=== PATIENT | female | born 1940 | race Caucasian/White ===

== ENCOUNTER 2017-08-30 13:21 | Emergency (ER) | payer MEDICARE ==
[~2017-08-30] VITALS: Ht 152.4 cm; Wt 105.0 kg
[~2017-08-30 13:21] MED LIST: ALPRAZOLAM0.25 MG PO; ATORVASTATIN CA20 MG PO; CLOPIDOGREL75 MG PO; LEVETIRACETAM500 M1 PO; LEXAPRO10 MG PO; LORTAB 5/3255 MG PO; NO MEDS; PRAVASTATIN20 MG PO; REQUIP0.5 MG PO; SEROQUEL25 MG PO; ZOLOFT25 MG PO; ZOLOFT50 MG PO; ZOLPIDEM5 MG PO
[2017-08-30] MEDS ORDERED: PROZAC10 MG PO (13:41)
[2017-08-30] MEDS ORDERED: SEROQUEL25 MG PO (13:41)
[2017-08-30 14:14] LABS: HEMATOCRIT 40.4 % (37.0-47.0); HEMOGLOBIN 13.8 g/dl (12.0-16.0); IMMATURE GRANULOCYTES 0.2 % (0.0-1.0); MEAN CELL VOLUME 100.7 fL CALC (80.0-100.0); MEAN CORPUSCULAR HGB 34.4 pG CALC (26.0-32.0); MEAN CORPUSCULAR HGB CONC 34.2 g/L CALC (32.0-36.0); NEUT# 5.3 thou/uL (2.00-7.15); RED BLOOD COUNT 4.01 mill/uL (4.20-5.60)
[2017-08-30 14:26] LABS: ALBUMIN 3.8 g/dL (3.2-5.0); ALKALINE PHOSPHATASE 145 u/l (38-126); ANION GAP 13 (6-22 (CALC)); BILIRUBIN, TOTAL 0.4 mg/dL (0.0-1.4); BUN 16 mg/dL (8-23); BUN/CREATININE RATIO 19 (12-20 (CALC)); CALCIUM 8.8 mg/dL (8.4-10.2); CARBON DIOXIDE 26 mmol/l (22-30); CHLORIDE 109 mmol/l (95-108); CREATININE 0.8 mg/dL (0.5-1.0); GFR > 60 ML/MIN (>=60 (CALC)); GFR FOR AFR.AMER. > 60 ML/MIN (>=60 (CALC)); GLUCOSE 116 mg/dL (82-115); POTASSIUM 3.7 mmol/l (3.5-5.1); SGOT/AST 29 u/l (9-36); SGPT/ALT 32 u/l (11-66); SODIUM 144 mmol/l (137-146)
[2017-08-30 14:38] LABS: MYOGLOBIN 34 ng/mL (0 - 62)
[2017-08-30] MEDS ORDERED: EC-NAPROSYN500 MG PO (14:45)
[2017-08-30 15:05] VITALS: BP 118/61
== END 2017-08-30 15:05 | disposition home or self-care (01) ==
LOC: ED 13:21
PROVIDERS: Emergency Medicine
DX: M25.512 Pain in left shoulder (principal); E78.5 Hyperlipidemia, unspecified; F32.9 Major depressive disorder, single episode, unspecified; F41.9 Anxiety disorder, unspecified; F03.90 Unspecified dementia, unspecified severity, without behavioral disturbance, psychotic disturbance, mood disturbance, and anxiety; Z86.73 Personal history of transient ischemic attack (TIA), and cerebral infarction without residual deficits; R94.31 Abnormal electrocardiogram [ECG] [EKG]

== ENCOUNTER 2018-01-01 12:13 | Emergency (ER) | payer MEDICARE ==
[~2018-01-01] VITALS: Ht 152.4 cm; Wt 100.0 kg
[~2018-01-01 12:13] MED LIST changes: +EC-NAPROSYN500 MG PO; +PROZAC10 MG PO
[2018-01-01] MEDS ORDERED: ALPRAZOLAM0.5 M2 PO (12:32)
[2018-01-01] MEDS ORDERED: LEVETIRACETAM500 MG PO (12:37)
[2018-01-01] MEDS ORDERED: ZOLPIDEM5 M1 PO (12:37)
[2018-01-01] MEDS ORDERED: ROPINIROLE HC0.25 MG PO (12:38)
[2018-01-01] MEDS ORDERED: FLUOXETINE HCL20 MG PO (12:39)
[2018-01-01] MEDS ORDERED: TORADOL PO (13:56)
[2018-01-01 14:02] VITALS: BP 124/76
== END 2018-01-01 14:09 | disposition home or self-care (01) ==
LOC: ED 12:13
DX: S86.911A Strain of unspecified muscle(s) and tendon(s) at lower leg level, right leg, initial encounter (principal); S76.911A Strain of unspecified muscles, fascia and tendons at thigh level, right thigh, initial encounter; M79.604 Pain in right leg

== ENCOUNTER 2018-01-11 14:00 | Emergency (ER) | payer MEDICARE ==
[~2018-01-11] VITALS: Ht 152.4 cm; Wt 110.0 kg
[~2018-01-11 14:00] MED LIST changes: +ALPRAZOLAM0.5 M2 PO; +FLUOXETINE HCL20 MG PO; +LEVETIRACETAM500 MG PO; +ROPINIROLE HC0.25 MG PO; +TORADOL PO; +ZOLPIDEM5 M1 PO
[2018-01-11] MEDS ORDERED: TORADOL PO (15:35)
[2018-01-11] MEDS ORDERED: MEDDOSEPAK PO (15:35)
[2018-01-11 15:45] VITALS: BP 132/77
== END 2018-01-11 15:45 | disposition home or self-care (01) ==
LOC: ED 14:00
DX: S86.911A Strain of unspecified muscle(s) and tendon(s) at lower leg level, right leg, initial encounter (principal); F03.90 Unspecified dementia, unspecified severity, without behavioral disturbance, psychotic disturbance, mood disturbance, and anxiety; W19.XXXA Unspecified fall, initial encounter

== ENCOUNTER 2019-10-03 | Emergency (ER) | payer MEDICARE ==
[~2019-10-03] MED LIST changes: +MEDDOSEPAK PO
[2019-10-03 11:45] LABS: HEMATOCRIT 43.8 % (37.0-47.0); HEMOGLOBIN 14.3 g/dl (12.0-16.0); IMMATURE GRANULOCYTES 0.3 % (0.0-5.0); MEAN CELL VOLUME 96.1 fL CALC (80.0-100.0); MEAN CORPUSCULAR HGB 31.4 pG CALC (26.0-32.0); MEAN CORPUSCULAR HGB CONC 32.6 g/L CALC (32.0-36.0); NEUT# 6.5 thou/uL (2.00-7.15); RED BLOOD COUNT 4.56 mill/uL (4.20-5.60); RED CELL DISTRI WIDTH 12.7 % (11.5-15.5)
[2019-10-03 11:58] LABS: ALBUMIN 3.9 g/dL (3.2-5.0); ALKALINE PHOSPHATASE 199 u/l (38-126); ANION GAP 14 (6-22 (CALC)); BILIRUBIN, TOTAL 0.4 mg/dL (0.0-1.4); BUN 14 mg/dL (8-23); BUN/CREATININE RATIO 19 (12-20 (CALC)); CARBON DIOXIDE 24 mmol/l (22-30); CHLORIDE 105 mmol/l (95-108); CREATININE 0.8 mg/dL (0.5-1.0); GFR > 60 ML/MIN (>=60 (CALC)); GFR FOR AFR.AMER. > 60 ML/MIN (>=60 (CALC)); POTASSIUM 3.8 mmol/l (3.5-5.1); SGOT/AST 35 u/l (9-36); SODIUM 140 mmol/l (137-146); TOTAL PROTEIN 7.7 g/dL (6.3-8.2)
[2019-10-03 12:57] LABS: URINE BILIRUBIN - DIPSTICK NEGATIVE (NEGATIVE); URINE BLOOD DIPSTICK TRACE-INTACT (NEGATIVE); URINE COLOR YELLOW; URINE GLUCOSE - DIPSTICK NEGATIVE (NEGATIVE); URINE KETONE NEGATIVE (NEGATIVE); URINE LEUK ESTERASE TRACE (NEGATIVE); URINE PROTEIN - DIPSTICK NEGATIVE (NEG-TRACE); URINE SPECIFIC GRAVITY 1.015
[2019-10-03] MEDS ORDERED: CEPHALEXIN500 MG PO (12:57)
[2019-10-03] MEDS ORDERED: CLARITIN10 M1 PO (12:57)
[2019-10-03 13:06] LABS: URINE NITRITE - DIPSTICK POSITIVE (Negative); URINE RBC 0-2 RBC/hpf (0-5)
[2019-10-03 13:07] LABS: URINE BACTERIA MANY hpf; URINE EPITHELIAL CELLS FEW EPI/hpf (0-FEW)
== END 2019-10-03 13:48 | disposition home or self-care (01) ==
PROVIDERS: Emergency Medicine
DX: N39.0 Urinary tract infection, site not specified (principal); J40 Bronchitis, not specified as acute or chronic; F03.90 Unspecified dementia, unspecified severity, without behavioral disturbance, psychotic disturbance, mood disturbance, and anxiety; B96.5 Pseudomonas (aeruginosa) (mallei) (pseudomallei) as the cause of diseases classified elsewhere

== ENCOUNTER 2021-10-08 18:09 | Inpatient (IN) | payer MEDICARE ==
[~2021-10-08] VITALS: Ht 152.4 cm; Wt 113.0 kg
[~2021-10-08 18:09] MED LIST changes: +CEPHALEXIN500 MG PO; +CLARITIN10 M1 PO
--- NOTE | 2021-10-08 18:15 | NUR ---
PATIENT TO ROOM 12 VIA EMS.
[2021-10-08 19:02] LABS: HEMATOCRIT 39.3 % (37.0-47.0); HEMOGLOBIN 13.4 g/dl (12.0-16.0); IMMATURE GRANULOCYTES 0.3 % (0.0-5.0); MEAN CORPUSCULAR HGB 35.7 pG CALC (26.0-32.0); MEAN CORPUSCULAR HGB CONC 34.1 g/dL CAL (32.0-36.0); NEUT# 5.54 thou/uL (2.00-7.15); RED BLOOD COUNT 3.75 mill/uL (4.20-5.60); RED CELL DISTRI WIDTH 14.5 % (11.5-15.5)
[2021-10-08 19:05] LABS: MEAN CELL VOLUME 104.8 fL CALC (80.0-100.0)
[2021-10-08 19:22] LABS: ALKALINE PHOSPHATASE 116 u/l (38-126); BUN 18 mg/dL (8-23); BUN/CREATININE RATIO 22 (12-20 (CALC)); CHLORIDE 102 mmol/l (95-108); CREATININE 0.8 mg/dL (0.5-1.0); GFR > 60 ML/MIN (>=60 (CALC)); GFR FOR AFR.AMER. > 60 ML/MIN (>=60 (CALC)); POTASSIUM 3.1 mmol/l (3.5-5.1); SGOT/AST 45 u/l (9-36); SODIUM 138 mmol/l (137-146); TOTAL PROTEIN 6.5 g/dL (6.3-8.2)
[2021-10-08 19:24] LABS: ALBUMIN 2.9 g/dL (3.2-5.0); ANION GAP 9 (6-22 (CALC)); BILIRUBIN, TOTAL 1.6 mg/dL (0.0-1.4); CARBON DIOXIDE 30 mmol/l (22-30)
--- NOTE | 2021-10-08 19:54 | NUR ---
RESTING COMFORTABLY AWAITING DISPO.
[2021-10-08] MEDS ORDERED: QUETIAPINE FUMA50 MG PO (20:15)
--- NOTE | 2021-10-09 | NUR ---
RESTING QUIETLY. VSS. NAD.
--- NOTE | 2021-10-09 01:30 | NUR ---
NO SIGNIFICANT CHANGE NOTED
[2021-10-09 02:43] VITALS: BP 111/56
--- NOTE | 2021-10-09 02:43 | NUR ---
PT RECEIVED FROM ED TO ROOM 263. ARRIVES VIA STRETCHER ACCOMPANIED BY PADMINI WATSON. PT TRANSFERED TO BED. PT NON-VERBAL PER ED NURSE . ORIENTED TO UNIT, ROOM, CALL LEDESMA, LIGHTS, TV. ICE WATER PROVIDED. CALL LEDESMA WITHIN REACH. AGREES TO CALL PRN.
--- NOTE | 2021-10-09 02:45 | NUR ---
Admission Note Report Given to: WALTER TANG Transported by: Wheelchair X Stretcher Transported with: X Nurse Transporter X Patent IV X O2 X Wash Driller Helper Location: ICU X MS2
--- NOTE | 2021-10-09 03:48 | NUR ---
ASSESMENT COMPLETE. PT LAYING IN BED WITH EYES CLOSED, APPEARS TO BE SLEEPING, APPEARS COMFORTABLE AND IN NO DISTRESS. RESPIRATIONS REGULAR AND UNLABORED. ITEMS REMAIN WITHIN REACH, CALL LEDESMA REMAINS WITHIN REACH. BED REMAINS LOCKED AND IN LOW POSITION WITH BEDRAILS UP X2. WILL CONTINUE TO MONITOR.
[2021-10-09 04:00] VITALS: BP 101/52
[2021-10-09 07:00] VITALS: BP 110/52
--- NOTE | 2021-10-09 07:00 | NUR ---
PATIENT LAYING IN BED AT THIS TIME. GEAR HOBBER DONE SEE INTERVENTIONS. LUNG MUNOZ ARE CLEAR THOUGHTOUT. SIDERAILS ARE UP X 2 PATIENT IS NON-VERBAL NO EVIDENCE OF EDEMA NOTED. CALL LIGHT IS WITHIN REACH TELE MONITOR ON AND BEING MONITORED BY ED.
[2021-10-09] MEDS ORDERED: ZOLPIDEM5 M1 PO (07:14)
[2021-10-09] MEDS ORDERED: ROPINIROLE HY0.25 MG PO (07:14)
[2021-10-09] MEDS ORDERED: CIPROFLOXACN500 MG PO (07:14)
[2021-10-09 11:11] VITALS: BP 126/61
[2021-10-09 11:50] LABS: HEMATOCRIT 35.8 % (37.0-47.0); HEMOGLOBIN 12.7 g/dl (12.0-16.0); IMMATURE GRANULOCYTES 0.5 % (0.0-5.0); MEAN CELL VOLUME 101.1 fL CALC (80.0-100.0); MEAN CORPUSCULAR HGB 35.9 pG CALC (26.0-32.0); MEAN CORPUSCULAR HGB CONC 35.5 g/dL CAL (32.0-36.0); NEUT# 3.83 thou/uL (2.00-7.15); RED BLOOD COUNT 3.54 mill/uL (4.20-5.60); RED CELL DISTRI WIDTH 14.2 % (11.5-15.5)
--- NOTE | 2021-10-09 11:56 | NUR ---
PATIENT RESTING IN BED AT THIS TIME. PATIENT GIVEN IN APPLESAUCE 20 MEQ'S OF K-DUR AT THIS TIME. PATIENT DENIES ANY PAIN. SIDERAILS ARE UP X 2 PATIENT ON CAMERA CALL LIGHT WITHIN REACH.
[2021-10-09 12:06] LABS: ALKALINE PHOSPHATASE 109 u/l (38-126); ANION GAP 11 (6-22 (CALC)); BILIRUBIN, TOTAL 1.2 mg/dL (0.0-1.4); BUN 24 mg/dL (8-23); BUN/CREATININE RATIO 31 (12-20 (CALC)); CARBON DIOXIDE 28 mmol/l (22-30); CHLORIDE 103 mmol/l (95-108); CREATININE 0.8 mg/dL (0.5-1.0); GFR > 60 ML/MIN (>=60 (CALC)); GFR FOR AFR.AMER. > 60 ML/MIN (>=60 (CALC)); POTASSIUM 2.9 mmol/l (3.5-5.1); SGOT/AST 40 u/l (9-36); SODIUM 139 mmol/l (137-146); TOTAL PROTEIN 6.7 g/dL (6.3-8.2)
[2021-10-09 12:38] LABS: C-REACTIVE PROTEIN 18.3 mg/dL (0-0.9)
--- NOTE | 2021-10-09 15:10 | NUR ---
PATIENT RESTING IN BED AT THIS TIME. PATIENT DENIES ANY PAIN SIDERAILS ARE UP CALL LIGHT WIHTIN REACH. TELE MONITOR ON PATIENT WILL CONTINUE TO MONITOR.
[2021-10-09 15:48] VITALS: BP 119/57
[2021-10-09 19:00] VITALS: BP 113/56
--- NOTE | 2021-10-09 20:00 | NUR ---
PHYSICAL ASSESMENT COMPLETE. PT CURRENTLY DENIES PAIN OR DISCOMFORT. SCHEDULED MEDICATIONS AND PRN MEDICATION ADMINISTERED, SEE E-MAR. PT DENIES ANY NEEDS AT THIS TIME. PLAN OF CARE REVIEWED, PT DENIES QUESTIONS, VERBALIZES UNDERSTANDING. ITEMS WITHIN REACH, BED LOCKED IN LOW POSITION W/ BEDRAILS UP X2. CALL LEDESMA WITHIN REACH, AGREES TO CALL PRN.
[2021-10-10] VITALS: BP 108/51
[2021-10-10 04:00] VITALS: BP 101/51
[2021-10-10 06:32] LABS: HEMOGLOBIN 12.1 g/dl (12.0-16.0); IMMATURE GRANULOCYTES 0.3 % (0.0-5.0); MEAN CELL VOLUME 102.4 fL CALC (80.0-100.0); MEAN CORPUSCULAR HGB 36.4 pG CALC (26.0-32.0); MEAN CORPUSCULAR HGB CONC 35.6 g/dL CAL (32.0-36.0); NEUT# 5.93 thou/uL (2.00-7.15); RED BLOOD COUNT 3.32 mill/uL (4.20-5.60); RED CELL DISTRI WIDTH 14.3 % (11.5-15.5)
[2021-10-10 07:01] LABS: ALBUMIN 2.6 g/dL (3.2-5.0); ALKALINE PHOSPHATASE 100 u/l (38-126); ANION GAP 10 (6-22 (CALC)); BILIRUBIN, TOTAL 0.9 mg/dL (0.0-1.4); BUN 33 mg/dL (8-23); BUN/CREATININE RATIO 35 (12-20 (CALC)); CARBON DIOXIDE 28 mmol/l (22-30); CHLORIDE 104 mmol/l (95-108); CREATININE 0.9 mg/dL (0.5-1.0); GFR 60 ML/MIN (>=60 (CALC)); GFR FOR AFR.AMER. > 60 ML/MIN (>=60 (CALC)); SGOT/AST 34 u/l (9-36); SODIUM 138 mmol/l (137-146); TOTAL PROTEIN 5.7 g/dL (6.3-8.2)
[2021-10-10 07:08] LABS: POTASSIUM 3.6 mmol/l (3.5-5.1)
--- NOTE | 2021-10-10 08:00 | NUR ---
PT AWAKE UPON ENTERING ROOM. VERY HARD OF HEARING. DENIES USE OF HEARING AIDS. PT CAN SAY NAME BUT COULD NOT TELL ME , OR WHERE SHE WAS AT. TRIED SPEAKINNG IN HIGHER TONE BUT COULD NOT HEAR WHAT IM SAYING. TRIED WRITING DOWN QUESTIONS ON PIECE OF PAPER BUT PT STILL DID NOT ANSWER. ASSESSMENT AND VITALS ALLOWED AT THIS TIME. LUNG SOUNDS CLEAR IN UPPER/ LOWER LOBES ANTERIOR. CLEAR/DIMINISHED UPPER LOWER LOBES POSTERIOR. HEART SOUNDS ARE REGULAR. TELE MONITOR IN PLACE, CONTINOUS MONITORING BY ED. BOWEL SOUNDS ARE ACTIVE X4. EDEMA ON LOWER EXTREMETIES TRACE. PT HAS SMALL BRUISE ON THE LEFT FOREARM. PT ON 5L OF 02 VIA NC. PT ALSO HAS REDNESS BETWEEN PERINEAL THIGHS AREA. BARRIER CREAM APPLIED. PT FACE SHOS NO PAIN, ASKED IF ANY PAIN BUT JUST SHRUGGED SHOULDERS. BED ALARM ACTIVATED. FALL/SAFTEY PRECAUTIONS IN PLACE, CALL LIGHT WITHIN REACH. IV LOCATED 2OG ON LH, SALINE LOCKED. FLUSHED WITH NO RESISTANCE.
[2021-10-10 10:45] VITALS: BP 108/51
--- NOTE | 2021-10-10 13:14 | NUR ---
PT SLEEPING AT THIS TIME. NO DISTRESS NOTED. IV PATENT. BED ALARM IN PLACE. FALL/SAFTEY PRECAUTION IN PLACE. CALL LIGHT WITHIN REACH
--- NOTE | 2021-10-10 14:19 | NUR ---
S- "I can't" when attempting to get pt to stand. 0- Pt resting in bed eyes closed, did not respond to verbal but to touch open her eyes. INDER ex performed to BLE in supine 2 x 10 reps each. Rolling side to side with mod assist and pt using bed rails. Supine to sit with mod/max assist, she was able to maintain sitting x 3 min with CGA. 02 sats initially 91% and desat to 85 while sitting once back in supine 90% HR 96-90, BP 110/53 to 98/55. Pts [address] thru treatment and nursing notified of sats. Pt left in bed with call burton in reach and upper rails up. Unable to get pt to stand today. Time spent with pt 25 min. 0- Pt with decreased mobility [facility] P- Will follow per POC. 0- Pt
[2021-10-10 15:30] VITALS: BP 100/48
--- NOTE | 2021-10-10 16:09 | NUR ---
PT IN SEMI SALEEM POSITION WATCHING TV AT THIS TIME. TRIED ASKING IF IN PAIN BUT DOES NOT UNDERSTAND. FACE APPEARANCE DOES NOT LOOK LIKE IT. NO DISTRESS NOTED. BREATHING IS EVEN AND UNLABORED. FALL/SAFTEY PRECAUTIONS IN PLACE. BED ALARM ACTIVATED. FALL/SAFTEY PRECATUIONS IN PLACE. IV PATENT. CALL LIGHT WITHIN REACH
--- NOTE | 2021-10-10 17:47 | NUR ---
NEW IV ESTABLISHED OUTER LAC 22G, FLUSHED ABLE TO GET BLOOD RETURN BY RN LV. PT TOLERATED WELL. CALL LIGHT WITHIN REACH
[2021-10-10 19:00] VITALS: BP 97/56
--- NOTE | 2021-10-10 22:27 | NUR ---
PHYSICAL ASSESMENT COMPLETE. PT CURRENTLY DENIES PAIN OR DISCOMFORT. SCHEDULED MEDICATIONS AND PRN MEDICATION ADMINISTERED, SEE E-MAR. PT CLEANED OF STOOL/ URINE AND PROVIDED WITH CLEAN LINEN. PLAN OF CARE REVIEWED, PT DENIES QUESTIONS, VERBALIZES UNDERSTANDING. ITEMS WITHIN REACH, BED LOCKED IN LOW POSITION W/ BEDRAILS UP X2. CALL LEDESMA WITHIN REACH, AGREES TO CALL PRN.
[2021-10-11] VITALS (10 sets, daily range): BP systolic 87–144; BP diastolic 41–89
[2021-10-11 06:08] LABS: HEMOGLOBIN 12.1 g/dl (12.0-16.0); IMMATURE GRANULOCYTES 0.2 % (0.0-5.0); MEAN CELL VOLUME 105.6 fL CALC (80.0-100.0); MEAN CORPUSCULAR HGB 35.5 pG CALC (26.0-32.0); MEAN CORPUSCULAR HGB CONC 33.6 g/dL CAL (32.0-36.0); NEUT# 5.23 thou/uL (2.00-7.15); RED BLOOD COUNT 3.41 mill/uL (4.20-5.60); RED CELL DISTRI WIDTH 14.3 % (11.5-15.5)
[2021-10-11 06:42] LABS: ALBUMIN 2.5 g/dL (3.2-5.0); ALKALINE PHOSPHATASE 102 u/l (38-126); ANION GAP 9 (6-22 (CALC)); BUN 36 mg/dL (8-23); BUN/CREATININE RATIO 42 (12-20 (CALC)); C-REACTIVE PROTEIN 5.3 mg/dL (0-0.9); CARBON DIOXIDE 28 mmol/l (22-30); CHLORIDE 106 mmol/l (95-108); CREATININE 0.9 mg/dL (0.5-1.0); GFR 60 ML/MIN (>=60 (CALC)); GFR FOR AFR.AMER. > 60 ML/MIN (>=60 (CALC)); POTASSIUM 3.6 mmol/l (3.5-5.1); SGOT/AST 35 u/l (9-36); SODIUM 139 mmol/l (137-146); TOTAL PROTEIN 5.7 g/dL (6.3-8.2)
--- NOTE | 2021-10-11 08:00 | NUR ---
PT AWAKE WATCHING TV AT THIS TIME. PT IS ALERT TO SELF/PERSON. PT IS NON VERBAL WHEN SPOKEN TO. NO DISTRESS NOTED. VITALS AND ASSESSMENT ALLOWED AT THIS TIME. LUNG SOUNDS CLEAR/DIMINISHED UPPER/LOWER LOBES ANTERIOR AND POSTERIOR. CRACKLES ARE HEARD IN RLL AND LLL ANTERIOR AND POSTERIOR. HEART SOUNDS ARE REGULAR, TELE MONITOR IN PLACE. CONTINOUS MONITORING BY ED. PULSES PEDAL AND RADIAL ARE STRONG. SKIN WDI. SEIZURE PRECAUTIONS IN PLACE. FALL/SAFTEY PRECAUTIONS IN PLACE. BED ALARM ACTIVATED. SPO2 AT 89-90 ON 6L OF 02 VIA NC. PT TENDS TO DROP 85-87 IN MORNINGS. BROUGHT UP TO 6L. CALL LIGHT WITHIN REACH
--- NOTE | 2021-10-11 09:03 | NUR ---
Patient has been evaluated and would probably benefit from OT consult if medical agrees
--- NOTE | 2021-10-11 12:00 | NUR ---
PT AWAKE WATCHING TV, NO DISTRESS NOTED. TELE MONITOR IN PLACE. IV SITE PATENT. FALL/SAFTEY/SEIZURE PRECAUTION IN PLACE. CALL LIGHT WITHIN REACH.
--- NOTE | 2021-10-11 17:48 | NUR ---
PT AWAKE SITTING IN RECLINER AT THIS TIME EATING DINNER. NO DISTRESS NOTED. TELE MONITOR IN PLACE. IV PATENT. FALL/SAFTEY PRECAUTIONS IN PLACE. CALL LIGHT WITHIN REACH.
--- NOTE | 2021-10-11 20:18 | NUR ---
ENTERED ROOM PT SLUMPED IN RECLINER, PT UNABLE TO COMMUNICATE, EYES OPEN PT HAS A "GAZE" LOOK FIXED TO L SIDE. PT ATTEMPTING TO GET OUT OF RECLINER PULLING ON WRITERS ARM WITH HER L ARM, PT MOVING L LEG FROM FLOOR TO RECLINER. WHEN ATTEMPTING TO GET PT IN BED, PT STOOD UP BUT SLID TO THE FLOOR. MANUFACTURING ASSOCIATE AND VOLUNTEER RECRUITER REMAINED AT BEDSIDE, PT DID NOT HIT THE FLOOR OR HER HEAD. PILLOW PROVIDED FOR SUPPORT. VOLUNTEER RECRUITER INSTRUCTED TO CALL STROKE ALERT. PT ACCUCHECK WAS 127. VITALS @ 2029 HR 104, 144/89, SPO2 81% ON 10L NC. PT ASSISTED TO BED X5. #20G LAC STARTED. NOTED R SIDE FLACCID. PT TAKEN TO CT. ARRIVED AT CT @2044. HUMAN FACTORS ERGONOMIST STATION AGENT NOTIFIED AND ORDERS OBTAINED. RT AT BEDSIDE ASSESSING RESPIRATORY STATUS. NON REBREATHER PLACED AND PT SATS 87%. NEUROLOGIST VIA TELESTROKE MONITOR FOR FURTHER INSTRUCTION.
--- NOTE | 2021-10-11 21:19 | NUR ---
ORDERS TO TRANSFER TO ICU, PT TAKEN VIA BED, REPORT GIVEN TO KIYA WATSON.
--- NOTE | 2021-10-11 21:20 | NUR ---
REPORT RECEIVED FROM Tony LINTON LPN WHILE DOWN IN CT CONTROL ROOM DURING PT'S CTA. CARE OF PT ASSUMED AT THIS TIME. PT TRANSPORTED TO ICU #8 IN BED. PT REMAINS NON-VERBAL WITH RIGHT SIDED HEMIPLEGIA AND RIGHT SIDED NEGLECT. PT AWAKE AND ALERT WITH L-SIDED MOVEMENT WNL. DOES NOT FOLLOW DIRECTION. LOOKS AROUND ROOM ON LEFT SIDE. ST 120'S ON MONITOR. SP02 93% ON NRB. NIBP 133/54mmHg. RR 25/M.
--- NOTE | 2021-10-11 21:30 | NUR ---
#16 FR. [place] INSERTED, ASEPTIC TECHNIQUE MAINTAINED. ASSISTED BY Tony LINTON LPN AND Ede VELÁZQUEZ RN.
--- NOTE | 2021-10-11 22:22 | NUR ---
Yasmin TIJERINA MADE AWARE OF CTA RESULTS, OCCLUDED L-MCA AND L-ICA. ORDERS ARE FOR SUPPORTIVE CARE. PERMISSIVE HTN UP TO 220mmHg. BIPAP OR VAPOTHERM TOLERATED IF NEEDED TO MAINTAIN SPO2 >88%.
--- NOTE | 2021-10-11 22:30 | NUR ---
TELEPHONE CALL TO LISTED NEXT OF KIN/PERSON TO NOTIFY, MARY WHITEHEAD ,DAUGHTER, MADE AT THIS TIME. NO ANSWER. VOICEMAIL LEFT WITH RETURN PHONE NUMBER FOR ICU.
--- NOTE | 2021-10-11 23:06 | NUR ---
PT RESTLESS. WILL NOT KEEP NRB ON. W/O NRB PTSS SPO2 QUICKLY DESATURATES INTO THE 60S. ORDER FOR ATIVAN RECEIVED. ATIVAN ADMINISTERED, SEE E-MAR.
[2021-10-12] VITALS (8 sets, daily range): BP systolic 100–140; BP diastolic 48–71
--- NOTE | 2021-10-12 02:43 | NUR ---
PT APPEARS TO BE SLEEPING COMFORTABLY. NO APPARENT DISTRESS. RESPIRATIONS REGULAR AND UNLABORED. RR 25/M. SP02 90% WITH NRB. ST102. NIBP 124/52mmHg.
--- NOTE | 2021-10-12 04:20 | NUR ---
Beau FRANCISCO JOB SUPERINTENDENT IN ROOM COLLECTING AM LABS.
--- NOTE | 2021-10-12 04:26 | NUR ---
350ML BRANDON URINE EMPTIED FROM [place]. URINE SAMPLE COLLECTED AND SENT TO LAB.
[2021-10-12 05:13] LABS: URINE BILIRUBIN - DIPSTICK NEGATIVE (NEGATIVE); URINE BLOOD DIPSTICK LARGE (NEGATIVE); URINE COLOR YELLOW; URINE GLUCOSE - DIPSTICK NEGATIVE (NEGATIVE); URINE KETONE NEGATIVE (NEGATIVE); URINE LEUK ESTERASE NEGATIVE (NEGATIVE); URINE PROTEIN - DIPSTICK NEGATIVE (NEG-TRACE); URINE SPECIFIC GRAVITY 1.015
[2021-10-12 05:14] LABS: HEMATOCRIT 38.9 % (37.0-47.0); HEMOGLOBIN 13.2 g/dl (12.0-16.0); IMMATURE GRANULOCYTES 1.6 % (0.0-5.0); MEAN CELL VOLUME 105.1 fL CALC (80.0-100.0); MEAN CORPUSCULAR HGB 35.7 pG CALC (26.0-32.0); MEAN CORPUSCULAR HGB CONC 33.9 g/dL CAL (32.0-36.0); NEUT# 11.42 thou/uL (2.00-7.15); RED BLOOD COUNT 3.7 mill/uL (4.20-5.60); RED CELL DISTRI WIDTH 14.7 % (11.5-15.5)
[2021-10-12 05:14] LABS: URINE NITRITE - DIPSTICK NEGATIVE (Negative)
[2021-10-12 05:26] LABS: URINE WBC 0-2 WBC/hpf (0-5)
[2021-10-12 05:39] LABS: ALBUMIN 2.7 g/dL (3.2-5.0); ALKALINE PHOSPHATASE 111 u/l (38-126); ANION GAP 9 (6-22 (CALC)); BILIRUBIN, TOTAL 1.4 mg/dL (0.0-1.4); BUN 31 mg/dL (8-23); BUN/CREATININE RATIO 42 (12-20 (CALC)); C-REACTIVE PROTEIN 6.2 mg/dL (0-0.9); CARBON DIOXIDE 29 mmol/l (22-30); CHLORIDE 106 mmol/l (95-108); CREATININE 0.7 mg/dL (0.5-1.0); GFR > 60 ML/MIN (>=60 (CALC)); GFR FOR AFR.AMER. > 60 ML/MIN (>=60 (CALC)); POTASSIUM 3.4 mmol/l (3.5-5.1); SGOT/AST 51 u/l (9-36); SODIUM 141 mmol/l (137-146); TOTAL PROTEIN 6.2 g/dL (6.3-8.2)
--- NOTE | 2021-10-12 08:43 | NUR ---
GEOVANNY VITAL NOTIFIED DAUGHTER OF PT CONDITION. PER AMANUEL, FAMILY WOULD LIKE PT TO BE DNR. ATTEMPTED TO VERIFY WITH DAUGHTER, LEFT A VOICEMAIL. AWAITNG CALL BACK
--- NOTE | 2021-10-12 09:03 | NUR ---
SPOKE WITH ORION HERNANDEZ RN
--- NOTE | 2021-10-12 13:44 | NUR ---
911 EMERGENCY DISPATCHER AT BEDSIDE
--- NOTE | 2021-10-12 16:55 | NUR ---
[facility] transport at bedside to transport pt to [facility]
== END 2021-10-12 17:01 | disposition hospice, inpatient (51) | DRG 177 ==
LOC: ED 18:09 → ED-I 10-09 01:00 → ED 10-09 01:18 → MS2 10-09 01:19 → ICU 10-11 21:30
PROVIDERS: Family Medicine; Nurse Practitioner; ADMIT Internal Medicine; ATTEND Internal Medicine
PROC: XW033E5 Introduction of Remdesivir Anti-infective into Peripheral Vein, Percutaneous Approach, New Technology Group 5 (ICD-10-PCS; principal; 2021-10-10)
PROC: 0T9B70Z Drainage of Bladder with Drainage Device, Via Natural or Artificial Opening (ICD-10-PCS; 2021-10-11)
DX: U07.1 COVID-19 (principal); J12.82 Pneumonia due to coronavirus disease 2019; J96.01 Acute respiratory failure with hypoxia; I63.512 Cerebral infarction due to unspecified occlusion or stenosis of left middle cerebral artery; I63.232 Cerebral infarction due to unspecified occlusion or stenosis of left carotid arteries; G81.01 Flaccid hemiplegia affecting right dominant side; R47.01 Aphasia; R29.722 NIHSS score 22; E87.6 Hypokalemia; F03.90 Unspecified dementia, unspecified severity, without behavioral disturbance, psychotic disturbance, mood disturbance, and anxiety; G40.909 Epilepsy, unspecified, not intractable, without status epilepticus; E78.5 Hyperlipidemia, unspecified; F32.A Depression, unspecified; F41.9 Anxiety disorder, unspecified; H91.90 Unspecified hearing loss, unspecified ear; Z51.5 Encounter for palliative care; Z86.79 Personal history of other diseases of the circulatory system; Z91.81 History of falling
CPT/HCPCS: G0378; J1650; J1953; J2060; Q9967